=== PATIENT | female | born 1985 | race African-American/Black ===

== ENCOUNTER 2017-09-25 16:25 | Emergency (ER) | payer OTHER ==
[~2017-09-25] VITALS: Ht 182.9 cm; Wt 109.8 kg
[2017-09-25 16:45] VITALS: BP 152/75
[2017-09-25] MEDS ORDERED: Morphine Sulfate 4mg/ml Inj IVP ONE ×2 (17:00→18:00)
[2017-09-25 17:20] LABS: HEMATOCRIT 35.7 % (37.0-47.0); HEMOGLOBIN 12.2 G/DL (12.0-16.0); MEAN CORPUSCULAR VOLUME 88 FL (80-99); PLATELET COUNT 260 K/UL (150-450); RED BLOOD COUNT 4.04 M/UL (4.20-5.40); RED CELL DISTRIBUTION WIDTH 15.2 % (11.6-14.8); WHITE BLOOD COUNT 13.9 K/UL (4.8-10.8)
[2017-09-25 17:27] LABS: ANION GAP 13 mmol/L (5-15); BLOOD UREA NITROGEN 7 mg/dL (7-18); CALCIUM 9.2 MG/DL (8.5-10.1); CARBON DIOXIDE 22 MMOL/L (21-32); CHLORIDE 102 MMOL/L (98-107); CREATININE 0.7 MG/DL (0.55-1.30); POTASSIUM 3.6 MMOL/L (3.5-5.1); SODIUM 136 MMOL/L (136-145)
[2017-09-25 17:33] LABS: ALANINE AMINOTRANSFERASE 21 U/L (12-78); ALBUMIN 3.8 G/DL (3.4-5.0); ALBUMIN/GLOBULIN RATIO 0.9 (1.0-2.7); ALKALINE PHOSPHATASE 81 U/L (46-116); ASPARTATE AMINO TRANSFERASE 10 U/L (15-37); BILIRUBIN,TOTAL 0.5 MG/DL (0.2-1.0)
[2017-09-25] MEDS ORDERED: NORCO 5-325 TA1 EACH ORAL (17:59)
[2017-09-25] MEDS ORDERED: RANITIDINE HCL150 MG ORAL (17:59)
[2017-09-25] MEDS ORDERED: ZOFRAN4 M3 ORAL (17:59)
[2017-09-25 18:25] VITALS: BP 147/80
--- NOTE | 2017-09-25 18:34 | Emergency Room Report ---
History of Present Illness General Chief Complaint: Abdominal Pain Source: Patient Present Illness HPI 32-year-old female presents ED for evaluation. Patient claimed abdominal pain with nausea and vomiting 1 day. History of gastritis. States that she normally takes ranitidine but states it is not helping at this time. Pain is burning, epigastric, 9 out of 10, nonradiating. Denies chest pain or shortness of breath. Denies fevers or chills. Denies diarrhea. No other aggravating relieving factors. Denies any other associated symptoms Allergies: Coded Allergies: No Known Allergies (Unverified , 09/25/17) Patient History Past Medical History: GERD Past Surgical History: none Pertinent Family History: none Social History: Denies: smoking, alcohol use, drug use Now: No Immunizations: UTD Reviewed Nursing Documentation: PMH: Agreed; PSxH: Agreed Nursing Documentation-PMH Past Medical History: No History, Except For Hx Gastrointestinal Problems: Yes - GERD Review of Systems All Other Systems: negative except mentioned in HPI Physical Exam Vital Signs Date Time Temp Pulse Resp B/P (MAP) Pulse Ox O2 Delivery O2 Flow Rate FiO2 09/25/17 16:37 98.0 72 20 160/99 98 Room Air 98.1 Sp02 EP Interpretation: reviewed, normal General Appearance: alert, GCS 15, non-toxic, moderate distress Head: normocephalic, atraumatic Eyes: bilateral eye normal inspection, bilateral eye PERRL ENT: hearing grossly normal, normal pharynx, no angioedema, normal voice Neck: full range of motion, supple/symm/no masses Respiratory: chest non-tender, lungs clear, normal breath sounds, speaking full sentences Cardiovascular #1: regular rate, rhythm, no edema Cardiovascular #2: 2+ carotid (R), 2+ carotid (L), 2+ radial (R), 2+ radial (L) , 2+ dorsalis pedis (R), 2+ dorsalis pedis (L) Gastrointestinal: normal bowel sounds, soft, non-distended, no guarding, no rebound, tenderness Rectal: deferred Genitourinary: normal inspection, no CVA tenderness Musculoskeletal: back normal, gait/station normal, normal range of motion, non- tender Neurologic: alert, oriented x3, responsive, motor strength/tone normal, sensory intact, speech normal Psychiatric: judgement/insight normal, memory normal, mood/affect normal, no suicidal/homicidal ideation Reflexes: 3+ bicep (R), 3+ bicep (L), 3+ tricep (R), 3+ tricep (L), 3+ knee (R) , 3+ knee (L) Skin: normal color, no rash, warm/dry, well hydrated Lymphatic: no adenopathy Medical Decision Making Diagnostic Impression: Primary Impression: Gastritis Qualified Codes: K29.00 - Acute gastritis without bleeding ER Course Hospital Course 32-year-old F presents to ED with epigastric pain with N/V. differential diagnosis: gastritis, SBO, cholecystits Clinical course Patient placed on stretcher. On cardiac care nurse. After initial history and physical I ordered labs, IV fluids, Zofran and pepcid with pain meds Labs - minimal leukocytosis, no electrolyte abnormalities, LFTs normal Upon reassessment, patient states pain has improved. findings consistent with gastritis I feel this is a highly complex case requiring extensive working including EKG/ Rhythm strip, Xray/CT/US, Blood/urine lab work, repeat exams while in ED, and administration of strong opiates/narcotics for pain control, admission to hospital or close patient follow up. Diagnosis - gastritis Stable and discharged to home with prescriptions for Zantac, zofran, [place]. Followup with PMD. Return to ED if symptoms recur or worsen Labs Test 09/25/17 16:46 09/25/17 16:56 Sodium Level 136 MMOL/L (136-145) Potassium Level 3.6 MMOL/L (3.5-5.1) Chloride Level 102 MMOL/L (98-107) Carbon Dioxide Level 22 MMOL/L (21-32) Anion Gap 13 mmol/L (5-15) Blood Urea Nitrogen 7 mg/dL (7-18) Creatinine 0.7 MG/DL (0.55-1.30) Estimat Glomerular Filtration Rate > 60 mL/min (>60) Glucose Level 110 MG/DL (74-106) Calcium Level 9.2 MG/DL (8.5-10.1) Total Bilirubin 0.5 MG/DL (0.2-1.0) Aspartate Amino Transf (AST/SGOT) 10 U/L (15-37) Alanine Aminotransferase (ALT/SGPT) 21 U/L (12-78) Alkaline Phosphatase 81 U/L (46-116) Total Protein 7.9 G/DL (6.4-8.2) Albumin 3.8 G/DL (3.4-5.0) Globulin 4.1 g/dL Albumin/Globulin Ratio 0.9 (1.0-2.7) Lipase 63 U/L (73-393) White Blood Count 13.9 K/UL (4.8-10.8) Red Blood Count 4.04 M/UL (4.20-5.40) Hemoglobin 12.2 G/DL (12.0-16.0) Hematocrit 35.7 % (37.0-47.0) Mean Corpuscular Volume 88 FL (80-99) Mean Corpuscular Hemoglobin 30.2 PG (27.0-31.0) Mean Corpuscular Hemoglobin Concent 34.2 G/DL (32.0-36.0) Red Cell Distribution Width 15.2 % (11.6-14.8) Platelet Count 260 K/UL (150-450) Mean Platelet Volume 8.2 FL (6.5-10.1) Neutrophils (%) (Auto) % (45.0-75.0) Lymphocytes (%) (Auto) % (20.0-45.0) Monocytes (%) (Auto) % (1.0-10.0) Eosinophils (%) (Auto) % (0.0-3.0) Basophils (%) (Auto) % (0.0-2.0) Last Vital Signs Date Time Temp Pulse Resp B/P (MAP) Pulse Ox O2 Delivery O2 Flow Rate FiO2 09/25/17 18:25 98.6 70 17 147/80 100 Room Air Status: improved Disposition: HOME, SELF-CARE Condition: Improved Scripts Ondansetron* (ZOFRAN*) 4 Mg Tablet 4 MG ORAL Q6H PRN for Nausea & Vomiting, #30 TAB Prov: Rd Baeza MD 09/25/17 Hydrocodone Bit/Acetaminophen 5-325* (NORCO 5-325*) 1 Each Tablet 1 TAB ORAL Q6H PRN for For Pain, #15 TAB 0 Refills Prov: Rd Baeza MD 09/25/17 Ranitidine Hcl* (ZANTAC*) 150 Mg Tablet 150 MG ORAL TWICE A DAY, #30 TAB Prov: Rd Baeza MD 09/25/17 Patient Instructions: Gastritis, Adult, [id number] Rd Baeza MD September 25, 2017 18:34
[2017-09-26] MEDS ORDERED: PEPCID AC20 M2 PO (19:14)
== END 2017-09-25 18:25 | disposition home or self-care (01) ==
LOC: EMR 17:57
DX: K29.70 Gastritis, unspecified, without bleeding (principal); K21.9 Gastro-esophageal reflux disease without esophagitis
CPT/HCPCS: 36415; 80053; 83690; 85007; 85025; 96374; 96375; 99284; J2270; J2405; S0028

== ENCOUNTER 2017-09-26 16:47 | Emergency (ER) | payer OTHER ==
[~2017-09-26] VITALS: Ht 182.9 cm; Wt 109.8 kg
[~2017-09-26 16:47] MED LIST: NORCO 5-325 TA1 EACH ORAL; RANITIDINE HCL150 MG ORAL; ZOFRAN4 M3 ORAL
[2017-09-26] MEDS ORDERED: Morphine Sulfate 4mg/ml Inj ONE (17:35)
[2017-09-26 17:39] LABS: BASOPHILS % (AUTO) 1.1 % (0.0-2.0); EOSINOPHILS % (AUTO) 0.3 % (0.0-3.0); HEMATOCRIT 33.1 % (37.0-47.0); HEMOGLOBIN 11.4 G/DL (12.0-16.0); LYMPHOCYTES % (AUTO) 16.7 % (20.0-45.0); MEAN CORPUSCULAR VOLUME 87 FL (80-99); MONOCYTES % (AUTO) 5.5 % (1.0-10.0); NEUTROPHILS % (AUTO) 76.4 % (45.0-75.0); PLATELET COUNT 234 K/UL (150-450); RED BLOOD COUNT 3.78 M/UL (4.20-5.40); RED CELL DISTRIBUTION WIDTH 15.4 % (11.6-14.8); WHITE BLOOD COUNT 13.4 K/UL (4.8-10.8)
[2017-09-26] MEDS ORDERED: Morphine Sulfate 4mg/ml Inj IVP ONE (17:45)
[2017-09-26 17:56] LABS: ANION GAP 10 mmol/L (5-15); BLOOD UREA NITROGEN 5 mg/dL (7-18); CALCIUM 8.4 MG/DL (8.5-10.1); CARBON DIOXIDE 23 MMOL/L (21-32); CHLORIDE 100 MMOL/L (98-107); CREATININE 0.8 MG/DL (0.55-1.30); POTASSIUM 3.1 MMOL/L (3.5-5.1); SODIUM 133 MMOL/L (136-145)
[2017-09-26 18:00] LABS: ALANINE AMINOTRANSFERASE 19 U/L (12-78); ALBUMIN 3.5 G/DL (3.4-5.0); ALBUMIN/GLOBULIN RATIO 0.9 (1.0-2.7); ALKALINE PHOSPHATASE 69 U/L (46-116); ASPARTATE AMINO TRANSFERASE 8 U/L (15-37); BILIRUBIN,TOTAL 0.6 MG/DL (0.2-1.0)
--- NOTE | 2017-09-26 18:09 | Emergency Room Report ---
History of Present Illness General Chief Complaint: Abdominal Pain Source: Patient, Medical Record Present Illness HPI 32-year-old female p/w epigastric abd pain nausea and vomiting for 2 days. Patient states pain started gradually , localized to epigastric area, non radiating, burning in nature, intermittent. No relieving or exacerbating factors. Admits to have this pain multiple times in the past. denies chronic NSAID use. States that she smokes marijuana chronically Pt reports n/v, than 5 episodes of nbnb vomiting, denies diarrhea. Denies black or bloody stools. Denies fever, chills. No hx of abdominal surgeries. No hx of endoscopies/colonoscopies. Patient was recently seen in the emergency room 2 days ago with similar complaints and was discharged after symptoms were well controlled Allergies: Coded Allergies: No Known Allergies (Unverified , 09/25/17) Patient History Past Medical History: see triage record Past Surgical History: none Pertinent Family History: none Last Menstrual Period: 08/21/17 Reviewed Nursing Documentation: PMH: Agreed; PSxH: Agreed Nursing Documentation-PMH Past Medical History: No History, Except For Hx Gastrointestinal Problems: Yes - GERD Review of Systems All Other Systems: negative except mentioned in HPI Physical Exam Vital Signs Date Time Temp Pulse Resp B/P (MAP) Pulse Ox O2 Delivery O2 Flow Rate FiO2 09/26/17 16:57 98.1 70 18 165/99 98 Room Air 98.1 Sp02 EP Interpretation: reviewed, normal General Appearance: alert, GCS 15, non-toxic, mild distress Head: normocephalic, atraumatic Eyes: bilateral eye normal inspection, bilateral eye PERRL, bilateral eye EOMI ENT: normal ENT inspection, normal pharynx, normal voice, moist mucus membranes Neck: normal inspection, full range of motion, supple Respiratory: normal inspection, lungs clear, normal breath sounds, no respiratory distress, no retraction, no wheezing, speaking full sentences, chest symmetrical Cardiovascular #1: normal inspection, regular rate, rhythm, no edema, normal capillary refill Cardiovascular #2: 2+ radial (R), 2+ radial (L) Gastrointestinal: other - Mild epigastric tenderness no guarding or rigidity nontender elsewhere in her abdomen Musculoskeletal: normal inspection, back normal, normal range of motion, non- tender Neurologic: normal inspection, alert, oriented x3, responsive, motor strength/ tone normal, sensory intact, normal gait, speech normal Psychiatric: normal inspection, judgement/insight normal, memory normal Skin: normal inspection, normal color, no rash, warm/dry, well hydrated, normal turgor Medical Decision Making Diagnostic Impression: Primary Impression: Abdominal pain Additional Impression: Vomiting ER Course 32-year-old female with epigastric abdominal pain Differential Diagnosis: Cyclic vomiting syndrome secondary to marijuana use versus Gastritis, gastroenteritis, cholecystitis, appendicitis, diverticulitis, SBO, mesenteric ischemia, cardiac, UTI/pyelo At this time abdomen is soft nontender, not likely to have acute intra- abdominal surgical pathology, will hold CT for now. Plan: Basic labs, ua, Pepcid Zofran, IVF ER course: Patient has remained stable during ED stay. Patient has been sleeping comfortably. Repeat abdominal exam is benign. Labs unremarkable with the exception of a leukocytosis that is likely secondary to vomiting She appears nontoxic Patient given GI cocktail She is told to refrain from all marijuana use, also given dietary modifications for possible gastritis. Disposition: Patient is to be discharged to home. Prescriptions given are Pepcid Told to abstain from all marijuana use, told to follow-up with gastroenterology Strict return precautions discussed with patient such as fever, chills, worsening/severe abdominal pain, nausea, vomiting, black or bloody stools, which may indicate severe illness. Patient verbalizes understanding and agrees with plan. Please note that this Emergency Department Report was dictated using [employer] technology software, occasionally this can lead to erroneous entry secondary to interpretation by the dictation equipment Laboratory Tests Test 09/26/17 17:15 White Blood Count 13.4 K/UL (4.8-10.8) H Red Blood Count 3.78 M/UL (4.20-5.40) L Hemoglobin 11.4 G/DL (12.0-16.0) L Hematocrit 33.1 % (37.0-47.0) L Mean Corpuscular Volume 87 FL (80-99) Mean Corpuscular Hemoglobin 30.1 PG (27.0-31.0) Mean Corpuscular Hemoglobin Concent 34.5 G/DL (32.0-36.0) Red Cell Distribution Width 15.4 % (11.6-14.8) H Platelet Count 234 K/UL (150-450) Mean Platelet Volume 7.4 FL (6.5-10.1) Neutrophils (%) (Auto) 76.4 % (45.0-75.0) H Lymphocytes (%) (Auto) 16.7 % (20.0-45.0) L Monocytes (%) (Auto) 5.5 % (1.0-10.0) Eosinophils (%) (Auto) 0.3 % (0.0-3.0) Basophils (%) (Auto) 1.1 % (0.0-2.0) Sodium Level 133 MMOL/L (136-145) L Potassium Level 3.1 MMOL/L (3.5-5.1) L Chloride Level 100 MMOL/L (98-107) Carbon Dioxide Level 23 MMOL/L (21-32) Anion Gap 10 mmol/L (5-15) Blood Urea Nitrogen 5 mg/dL (7-18) L Creatinine 0.8 MG/DL (0.55-1.30) Estimate Glomerular Filtration Rate > 60 mL/min (>60) Glucose Level 95 MG/DL (74-106) Calcium Level 8.4 MG/DL (8.5-10.1) L Total Bilirubin 0.6 MG/DL (0.2-1.0) Aspartate Amino Transferase (AST) 8 U/L (15-37) L Alanine Aminotransferase (ALT) 19 U/L (12-78) Alkaline Phosphatase 69 U/L (46-116) Total Protein 7.2 G/DL (6.4-8.2) Albumin 3.5 G/DL (3.4-5.0) Globulin 3.7 g/dL Albumin/Globulin Ratio 0.9 (1.0-2.7) L Lipase 82 U/L (73-393) Last Vital Signs Date Time Temp Pulse Resp B/P (MAP) Pulse Ox O2 Delivery O2 Flow Rate FiO2 09/26/17 16:57 98.1 70 18 165/99 98 Room Air 98.1 Disposition: HOME, SELF-CARE Condition: Improved Referrals: [facility] (PCP) Shruthi Brannon M.D. September 26, 2017 18:09
[2017-09-26] MEDS ORDERED: PEPCID AC20 M2 PO (19:14)
[2017-09-26] MEDS ORDERED: Dicyclomine HCl 10mg/5ml oral soln ORAL ONE (19:15)
[2017-09-26] MEDS ORDERED: Lidocaine 2% Visc 15ml soln ORAL ONE (19:15)
[2017-09-26] MEDS ORDERED: Mylanta II UD 30ml ORAL ONE (19:15)
[2017-09-26 19:47] VITALS: BP 158/90
[2017-09-26 19:54] VITALS: BP 158/90
[2017-09-26 20:29] LABS: APPEARANCE,URINE CLEAR; BILIRUBIN, URINE NEGATIVE (NEGATIVE); COLOR,URINE PALE YELLOW; GLUCOSE, URINE (UA) NEGATIVE (NEGATIVE); KETONES,URINE 4+ (NEGATIVE); LEUKOCYTE ESTERASE ,URINE NEGATIVE (NEGATIVE); NITRITE,URINE NEGATIVE (NEGATIVE); PH,URINE 6 (4.5-8.0); PROTEIN,URINE 1+ (NEGATIVE); UROBILINOGEN,URINE NORMAL MG/DL (0.0-1.0)
== END 2017-09-26 19:55 | disposition home or self-care (01) ==
LOC: EMR 17:38
DX: R10.13 Epigastric pain (principal); R11.2 Nausea with vomiting, unspecified; K21.9 Gastro-esophageal reflux disease without esophagitis
CPT/HCPCS: 36415; 80053; 81003; 81025; 83690; 85025; 96361; 96374; 96375; 99284; J2270; J2405; S0028